=== PATIENT | female | born 1990 | race Caucasian/White ===

== ENCOUNTER 2019-08-29 01:21 | Emergency (ER) | payer BC, OTHER ==
[2019-08-29] MEDS ORDERED: Etomidate 2 MG/ML 20 ML SDV IVPUSH ONE (01:43)
--- NOTE | 2019-08-29 02:05 | EDM.PDOC ---
ED HPI GENERAL MEDICAL PROBLEM - General Chief Complaint: Lower Extremity Injury/Pain Stated Complaint: ankle Time Seen by Provider: 08/29/19 01:37 Source of Information: Reports: Patient History Limitations: Reports: No Limitations - History of Present Illness INITIAL COMMENTS - FREE TEXT/NARRATIVE: This is a 29-year-old female. She has been in the [employer] and when she went out of the parking lot to go home she slipped and twisted her ankle. She was not able to get up after she fell and she noted that the ankle is bent to the outside. She is brought here to the ER for evaluation. She complains of severe pain in the ankle itself is obviously fractured and dislocated. She denies any other injuries at this time. Left Ankle Pain Score (Numeric/FACES): 10 - Related Data Allergies Allergy/AdvReac Type Severity Reaction Status Date / Time No Known Allergies Allergy Verified 08/29/19 01:26 Home Meds: Home Meds Hydrocodone/Acetaminophen [Hydrocodon-Acetaminophen 5-325] 1 - 2 each PO Q6H PRN #20 tablet 08/29/19 [Rx] Past Medical History - Past Health History Medical/Surgical History: Denies Medical/Surgical History Social & Family History - Tobacco Use Smoking Status *Q: Never Smoker Second Hand Smoke Exposure: No - Caffeine Use Caffeine Use: Reports: Coffee - Alcohol Use Days Per Week of Alcohol Use: 1 Number of Drinks Per Day: 7 Total Drinks Per Week: 7 - Recreational Drug Use Recreational Drug Use: No Review of Systems - Review of Systems Review Of Systems: See Below (Patient is not able to give a review of systems at this time) Constitutional: Denies: Chills, Fever Eyes: Reports: No Symptoms Ears: Reports: No Symptoms Nose: Reports: No Symptoms Mouth/Throat: Reports: No Symptoms Respiratory: Reports: No Symptoms Cardiovascular: Reports: No Symptoms GI/Abdominal: Reports: No Symptoms Genitourinary: Reports: No Symptoms Musculoskeletal: Reports: Joint Pain, Other (Ankle pain) Skin: Reports: No Symptoms Neurological: Reports: No Symptoms Psychiatric: Reports: No Symptoms ED EXAM, GENERAL - Physical Exam Exam: See Below Exam Limited By: No Limitations General Appearance: Alert, WD/WN, Moderate Distress Eye Exam: Bilateral Eye: Normal Inspection Ears: Normal External Exam Nose: Normal Inspection Throat/Mouth: Normal Lips, Normal Voice, No Airway Compromise Head: Normocephalic Neck: Supple Respiratory/Chest: No Respiratory Distress Extremities: Other (Left lower extremity ankle the ankle is shifted to the medial side and is obviously dislocated, neurovascular is intact in the toes, he denies any knee pain or other injury however the left ankle is a consuming pain for her) Neurological: Alert, Oriented Psychiatric: Anxious, Tearful Skin Exam: Warm, Dry ED TRAUMA EXTREMITY PROCEDURES - Joint Reduction Site: Other (Left ankle) Sedation: Conscious Sedation Pre-Procedure NV Status: Normal Post-Procedure NV Status: Normal Number of Attempts: 1 Post-Reduction Imaging: Completely Reduced Joint Reduction Complications: No Progress/Comments: The patient was placed in trauma room 2, once respiratory was here the nurse gave her 20 mg of etomidate, she went to sleep peacefully, once she had full conscious sedation the left ankle was reduced and a posterior splint and sugar tong splint were placed. X-rays postreduction shows good placement talus but she has a trimalleolar fracture. Patient woke up without any difficulty after she was already splinted. The severe pain that she was having has resolved though she is still having some pain from the ankle. During this time her pulse ox stayed above 94, her pulse in the 100 range. And there were no complications with the procedure. - Splinting Left Lower Extremity Splint Site: Left ankle Pre-Procedure NV Status: Normal Post-Procedure NV Status: Normal Splint Material: Other (Ortho-Glass) Splint Design: Sugar Tong, Posterior Applied & Form Fitted By: Provider Provider Post-Splint Application NV Check: NV Status Normal, Good Position Complications: No Course - Vital Signs Last Recorded V/S: Last Vital Signs Temp 96.9 F 08/29/19 01:25 Pulse 96 08/29/19 01:25 Resp 18 08/29/19 01:25 BP 107/76 08/29/19 01:25 Pulse Ox 97 08/29/19 01:25 - Orders/Labs/Meds Orders: Active Orders 24 hr Category Date Time Status Ankle 2V Lt [CR] Routine Exams 08/29/19 02:03 Taken Ankle 2V Lt [CR] Stat Exams 08/29/19 01:35 Taken DME for Discharge [COMM] Stat Oth 08/29/19 02:38 Ordered Meds: Medications Discontinued Medications Generic Name Dose Route Start Last Admin Trade Name Freq PRN Reason Stop Dose Admin Etomidate 20 mg 08/29/19 01:43 08/29/19 01:50 Amidate IVPUSH 08/29/19 01:44 20 mg ONETIME ONE Administration Hydromorphone HCl 0.25 mg 08/29/19 02:19 08/29/19 02:23 Dilaudid IVPUSH 08/29/19 02:20 0.25 mg ONETIME ONE Administration - Radiology Interpretation Free Text/Narrative:: Initial x-ray shows a trimalleolar fracture essentially with the talus moved laterally and posteriorly showing not only fractures but a dislocation of the ankle. Post reduction the talus is in proper position and the bones of fallen back into place appropriately. - Re-Assessments/Exams Free Text/Narrative Re-Assessment/Exam: 08/29/19 02:[address] Mcallister regarding the fracture and the reduction. He is going to see her on Friday and do some additional studies and then take her to surgery on Friday. Spoke to the mother and the patient regarding the plan. I will put her on crutches and I told her absolutely no weightbearing on that left ankle. She is to go home put the left leg up and ice it down and take medicines for pain and then call Dr. Mcallister's office Friday morning at 8 AM. They understand completely that she cannot walk on that left foot and that she needs to stay off of it completely and keep it up and ice down until she sees Dr. Mcallister. Departure - Departure Time of Disposition: 02:43 Disposition: Home, Self-Care 01 Condition: Fair Clinical Impression: Dislocation of left ankle joint, initial encounter Closed trimalleolar fracture of left ankle Qualifiers: Encounter type: initial encounter Qualified Code(s): S82.852A - Displaced trimalleolar fracture of left lower leg, initial encounter for closed fracture Fx shaft fibula-closed Qualifiers: Encounter type: initial encounter Fracture morphology: oblique Fracture alignment: displaced Laterality: left Qualified Code(s): S82.432A - Displaced oblique fracture of shaft of left fibula, initial encounter for closed fracture - Discharge Information *PRESCRIPTION DRUG MONITORING PROGRAM REVIEWED*: No *COPY OF PRESCRIPTION DRUG MONITORING REPORT IN PATIENT SHWETA: No Prescriptions: Hydrocodone/Acetaminophen [Hydrocodon-Acetaminophen 5-325] 1 - 2 each PO Q6H PRN #20 tablet PRN Reason: Pain Instructions: Ankle Dislocation, [id number], Crutch Use, Adult, [id number] , Ankle Fracture Referrals: Jose Manuel Mcallister MD [Physician] - Forms: ED Department Discharge Additional Instructions: Use your crutches at all times, do not put any weight on that left foot or ankle , when you go home put the left leg up and iced down the ankle, keep that left leg up as much as possible Call Dr. Blandon's office at 8 AM on Friday to be seen by him for additional x-ray studies and then preop for surgery on Friday this week is what he told me Use the medications for pain as needed, drink lots of fluids so it does not upset your stomach, you may eat normally as you feel fit, return to the ER if needed Sepsis Event Note - Evaluation Sepsis Screening Result: No Definite Risk - Focused Exam Vital Signs: Vital Signs Temp Pulse Resp BP Pulse Ox 08/29/19 01:25 96.9 F 96 18 107/76 97 Date Exam was Performed: 08/29/19 Time Exam was Performed: 02:38 - My Orders Last 24 Hours: My Active Orders 08/29/19 01:35 Ankle 2V Lt [CR] Stat 08/29/19 02:03 Ankle 2V Lt [CR] Routine 08/29/19 02:38 DME for Discharge [COMM] Stat - Assessment/Plan Last 24 Hours: My Active Orders 08/29/19 01:35 Ankle 2V Lt [CR] Stat 08/29/19 02:03 Ankle 2V Lt [CR] Routine 08/29/19 02:38 DME for Discharge [COMM] Stat
[2019-08-29] MEDS ORDERED: HYDROmorphone 0.5 MG/0.5 ML Syringe IVPUSH ONE (02:19)
--- NOTE | 2019-08-29 09:21 | CR ---
Left ankle: 2 views left ankle were obtained. Comparison: No previous ankle study. Slightly comminuted distal fibular shaft fracture is noted. Fracture noted within the medial and posterior malleolus. There is dislocation of the distal tibia anteriorly and more prominent medially in relation to the talus. Diffuse soft tissue swelling is noted. No additional abnormality is seen. Impression: 1. Trimalleolar fracture with dislocation of the tibiotalar joint. 2. Soft tissue swelling. Diagnostic code #3 This report was dictated in [place] Standard Time
--- NOTE | 2019-08-29 09:25 | CR ---
Left ankle: 2 views of the left ankle were obtained. Comparison: Previous ankle exam performed earlier on the same day (1:35 AM). Medial malleolus fracture, distal fibular shaft fracture and posterior malleolus fracture are again noted and are improved in alignment from previous study. Previous dislocation at the tibiotalar joint has been corrected. Fiberglass cast is in place. Diffuse soft tissue swelling is present. Impression: 1. Reduction of previous dislocation. Fracture alignment is also significantly improved. 2. Fiberglas cast is now seen. Diagnostic code #3 This report was dictated in [place] Standard Time
== END 2019-08-29 03:18 | disposition home or self-care (01) ==
LOC: JD.ED 01:21
DX: S82.852A Displaced trimalleolar fracture of left lower leg, initial encounter for closed fracture (principal); S82.432A Displaced oblique fracture of shaft of left fibula, initial encounter for closed fracture; W01.0XXA Fall on same level from slipping, tripping and stumbling without subsequent striking against object, initial encounter
CPT/HCPCS: 27840; 73600; 96374; 99283; J1170; J3490; 27818; 99284

== ENCOUNTER 2019-09-06 06:03 | Day surgery (SDC) | payer BC ==
[~2019-09-06 06:03] MED LIST: Midazolam 1 MG/ML 2 ML SDV ONE; Propofol 200 MG/20 ML SDV ONE; Ropivacaine 0.5% 5 MG/ML 30 ML SDV ONE; fentaNYL 100 MCG/2 ML SDV ONE
--- NOTE | 2019-09-06 06:24 | PCM.PREANE ---
Preanesthetic Assessment - Anesthesia/Transfusion/Family Hx Anesthesia History: Prior Anesthesia Without Reaction Transfusion History: No Prior Transfusion(s) Intubation History: Unknown - Review of Systems General: No Symptoms Pulmonary: No Symptoms Cardiovascular: No Symptoms Gastrointestinal: No Symptoms Neurological: No Symptoms Other: Reports: None - Physical Assessment ASA Class: 2 Mental Status: Alert & Oriented x3 Airway Class: Mallampati = 3 Dentition: Reports: Normal Dentition Thyro-Mental Finger Breadths: 3 Mouth Opening Finger Breadths: 3 ROM/Head Extension: Full Lungs: Clear to Auscultation, Normal Respiratory Effort Cardiovascular: Regular Rate, Regular Rhythm - Allergies Allergies/Adverse Reactions: Allergies Allergy/AdvReac Type Severity Reaction Status Date / Time amoxicillin Allergy Cannot Verified 09/03/19 12:58 Remember cetirizine [From Zyrtec] Allergy Cannot Verified 09/03/19 12:58 Remember - Acknowledgements Anesthesia Type Planned: General Anesthesia, Regional Block, MAC Pt an Appropriate Candidate for the Planned Anesthesia: Yes Alternatives and Risks of Anesthesia Discussed w Pt/Guardian: Yes Pt/Guardian Understands and Agrees with Anesthesia Plan: Yes PreAnesthesia Questionnaire - Past Health History Medical/Surgical History: Denies Medical/Surgical History HEENT History: Reports: Allergic Rhinitis, Impaired Vision Respiratory History: Reports: Asthma EXPLORATION GEOLOGIST History: Reports: Other (See Below) Other OB/BYN History: AUBRIE III, HGSIL - Past Surgical History Head Surgeries/Procedures: Reports: None HEENT Surgical History: Reports: None Cardiovascular Surgical History: Reports: None Respiratory Surgical History: Reports: None GI Surgical History: Reports: None Female Surgical History: Reports: None Male Surgical History: Reports: None Endocrine Surgical History: Reports: None Neurological Surgical History: Reports: None Musculoskeletal Surgical History: Reports: Other (See Below) Other Musculoskeletal Surgeries/Procedures:: finger fracture with surgery Oncologic Surgical History: Reports: None Dermatological Surgical History: Reports: None - SUBSTANCE USE Smoking Status *Q: Never Smoker Recreational Drug Use History: No - HOME MEDS Home Medications: Home Meds Hydrocodone/Acetaminophen [Hydrocodon-Acetaminophen 5-325] 1 - 2 each PO Q6H PRN #20 tablet 08/29/19 [Rx] Albuterol Sulfate [Proair Hfa] 1 - 2 puff INH Q4H PRN 09/03/19 [History] Levonorgestrel-Ethin Estradiol [Orsythia-28 Tablet] 1 tab PO DAILY 09/03/19 [ History] - CURRENT (IN HOUSE) MEDS Current Meds: Current Medications Lactated Ringer's (Ringers, Lactated) 1,000 mls @ 125 mls/hr IV ASDIRECTED MARS Stop: 09/06/19 23:00 Lidocaine/Sodium Bicarbonate (Buffered Lidocaine 1% In Ns 8.4%) 0.25 ml IDERM ONETIME PRN PRN Reason: Prior to IV Start Stop: 09/06/19 23:00 Sodium Chloride (Saline Flush) 10 ml FLUSH ASDIRECTED PRN PRN Reason: Keep Vein Open Stop: 09/06/19 23:00 Discontinued Medications Fentanyl (Sublimaze) Confirm Administered Dose 100 mcg .ROUTE .STK-MED ONE Stop: 09/06/19 05:52 Midazolam HCl (Versed 1 Mg/Ml) Confirm Administered Dose 4 mg .ROUTE .STK-MED ONE Stop: 09/06/19 05:52 Propofol (Diprivan 20 Ml) Confirm Administered Dose 400 mg .ROUTE .STK-MED ONE Stop: 09/06/19 05:52 Ropivacaine (Naropin 0.5%) Confirm Administered Dose 30 ml .ROUTE .STK-MED ONE Stop: 09/06/19 05:58
[2019-09-06] MEDS ORDERED: Bupivacaine 0.25% 10 ML SDV ONE ×2 (06:32→08:09)
[2019-09-06] MEDS ORDERED: Sodium Chloride 0.9% 10 ML Syringe FLUSH PRN (07:00)
[2019-09-06] MEDS ORDERED: Lidocaine 1%/Sod Bicarbonate in NS 8.4% 1 ML Syringe IDERM PRN (07:00)
[2019-09-06] MEDS ORDERED: Midazolam 1 MG/ML 2 ML SDV ONE (07:16)
[2019-09-06] MEDS ORDERED: ceFAZolin 1 GM Vial ONE (07:20)
[2019-09-06] MEDS ORDERED: Propofol 200 MG/20 ML SDV ONE ×3 (07:22→08:24)
[2019-09-06] MEDS: Lactated Ringers 1,000 ML IV SCH ×2 (07:24→10:44)
[2019-09-06] MEDS ORDERED: Lactated Ringers 1,000 ML ONE (07:25)
--- NOTE | 2019-09-06 08:22 | PCM.PRNOTE ---
- Free Text/Narrative Note: Postoperative regional pain control requested by surgeon. Pre-op Dx: Left trimalleolar fracture Surgery : Left trimalleolar fracture ORIF Anesthesia Procedure: Left Popliteal block and Left saphenous block below the knee with U/S guidance Requesting physician: Dr. Jose Manuel Goode Risks and benefits discussed with the patient preoperatively including infection , bleeding, incomplete or failed block, possible nerve damage, local anesthetic toxicity. Chart reviewed, VS stable. Permit signed. Patient in PACU holding area, stable , alert and awake. Time out performed at 06 :38. Oxygen 3L via NC. Left lateral thigh area above the knee was prepped with Chloraprep x 1 and allowed to dry. Midazolam IV 4 mg given incrementally. Under aseptic technique, the Left common peroneal and Left tibial nerves were identified under ultrasound prior to needle insertion. 4" Stimuplex needle #22 G was inserted under US guidance. Neuromuscular response was elicited with noted foot twitch at 0.6 mA. Under direct visualization of needle tip the injection of 0.5% Ropivacaine with 1:200k epinephrine, total of 30 mls in divided doses, maintaining negative aspiration was completed without problems. After that, the medial surface of the left leg BELOW the knee was prepped with Chloraprep and allowed to dry. Under ultrasound guidance left great saphenous vein was identified and using a 2" Stimuplex needle 5 mls of Bupivacaine 0.5% were inject around it in a crescent shape fashion. No local anesthetic toxicity was noted. Patient is awake, stable and tolerated the procedure well. Please see the attached ultrasound images. Time: 06:38 - 07:00 Date: 09/06/2019 Reymundo Vallecillo CRNA
[2019-09-06] MEDS ORDERED: HYDROmorphone 0.5 MG/0.5 ML Syringe IVPUSH PRN (08:27)
[2019-09-06] MEDS ORDERED: fentaNYL 100 MCG/2 ML SDV IVPUSH PRN (08:27)
[2019-09-06] MEDS ORDERED: Ondansetron 4 MG/2 ML SDV ONE (08:42)
--- NOTE | 2019-09-06 09:16 | PCM.POSTAN ---
POST ANESTHESIA ASSESSMENT - MENTAL STATUS Mental Status: Alert, Somnolent - VITAL SIGNS Vital Signs: Last Vital Signs Temp 98.2 F 09/06/19 09:05 Pulse 106 H 09/06/19 09:05 Resp 23 H 09/06/19 09:05 BP 150/79 H 09/06/19 09:05 Pulse Ox 100 09/06/19 09:05 - RESPIRATORY Respiratory Status: Respiratory Rate WNL, Airway Patent, O2 Saturation Stable, Supplemental Oxygen - CARDIOVASCULAR CV Status: Pulse Rate WNL, Blood Pressure Stable - GASTROINTESTINAL GI Status: No Symptoms - PAIN Pain Score: 0 (post sciatic popliteal block) - POST OP HYDRATION Hydration Status: Adequate & Stable
--- NOTE | 2019-09-06 09:22 | CR ---
Left ankle: 13 fluoroscopic spot views were obtained of the left ankle utilizing C-arm device. Previously noted distal fibular shaft fracture and medial malleolar fracture are noted. Ankle mortise is symmetric. Study shows placement of plate and screws across the fibular shaft fracture and 2 screws within the medial malleolar fracture. Final exam shows symmetric ankle mortise. Fluoroscopy time is given as 56.8 seconds. Impression: 1. Operative study showing fixation of previous fractures. Diagnostic code #2 This report was dictated in [place] Standard Time
[2019-09-06] MEDS ORDERED: Acetaminophen/HYDROcodone 325-5 MG Tab PO PRN (09:52)
--- NOTE | 2019-09-06 10:43 | PCM48HPAN ---
Post Anesthesia Note - EVALUATION WITHIN 48HRS OF ANESTHETIC Vital Signs in Normal Range: Yes Patient Participated in Evaluation: Yes Respiratory Function Stable: Yes Airway Patent: Yes Cardiovascular Function Stable: Yes Hydration Status Stable: Yes Pain Control Satisfactory: Yes Nausea and Vomiting Control Satisfactory: Yes Mental Status Recovered: Yes Vital Signs: Last Vital Signs Temp 97.3 F 09/06/19 10:20 Pulse 87 09/06/19 10:35 Resp 13 09/06/19 10:35 BP 124/79 09/06/19 10:35 Pulse Ox 99 09/06/19 10:35
--- NOTE | 2019-09-06 18:06 | PCM.OPNOTE ---
- General Post-Op/Procedure Note Date of Surgery/Procedure: 09/06/19 Operative Procedure(s): oped reduction internal fixation of left trimalleolar ankle fracture with syndesmotic fixation Pre Op Diagnosis: left trimalleolar ankle fracture with syndesmosis disruption Post-Op Diagnosis: Same Anesthesia Technique: Local, MAC, Regional Block Primary Surgeon: Jose Manuel Mcallister Anesthesia Provider: Reymundo Vallecillo Bridal Sales Consultant: Nancy Jones EBL in mLs: 10 Complications: None Condition: Good Free Text/Narrative:: Intake & Output 09/06/19 09/06/19 09/06/19 06:59 14:59 22:59 Intake Total 940 Balance 940
--- NOTE | 2019-09-06 18:45 | OR ---
DATE OF OPERATION: 09/06/2019 SURGEON: Jose Manuel Mcallister MD OPERATION PERFORMED: Open reduction and internal fixation of left trimalleolar ankle fracture with syndesmotic fixation. PREOPERATIVE DIAGNOSIS: Left trimalleolar ankle fracture with syndesmotic disruption. POSTOPERATIVE DIAGNOSIS: Left trimalleolar ankle fracture with syndesmotic disruption. ANESTHESIA: Local MAC with regional popliteal block. ANESTHESIA PROVIDER: Reymundo Vallecillo. FOOD AND BEVERAGE SERVER: Nancy Jones PA-C ESTIMATED BLOOD LOSS: Less than 10 mL. COMPLICATIONS: None. CONDITION: Stable. DESCRIPTION OF PROCEDURE: The patient was identified in the preop holding area. Proper site was marked and identified by the surgeon. The patient was taken back to the operating room, where after adequate anesthesia, the patient's left lower extremity had a nonsterile tourniquet applied and then was sterilely prepped and draped in the usual sterile fashion. OR time-out was performed. The patient received 2 g of IV Ancef. At this time, the left lower extremity was exsanguinated. Tourniquet was insufflated to 250 mmHg. At this time, standard lateral incision was made more proximally as the patient had a higher fibular fracture. Care was taken to correct the neurovascular bundles. This was retracted anteriorly. This was taken down the fracture site. Fracture site was identified. Fracture hematoma was then irrigated. I then rongeured out, and a vhjsq-sy-hymit reduction clamp was used for reduction of the fibula. Fibula was noted to be reduced with adequate gnosticist of length distally on C-arm fluoroscopy. At this time, utilizing C-arm fluoroscopy, the plate was then placed, making sure that I had distally enough room to place a syndesmotic fixation. Proximally, one 3.5 cortical screw was placed, and then distally, one 3.5 cortical screw was placed and was found to have adequate gnosticist and fixation of the fracture with anatomic reduction. Next 2 more 3.5 cortical screws were placed proximally and then 2 more placed distally. At this time, attention was turned to the medial malleolar piece. The medial malleolar incision was then made. This was taken down at the medial malleolar piece. Curette and rongeur were used to remove any fracture hematoma. [id number] clamp was then used for reduction, and 2 guidewires were placed for 4.0 Cannulated screws in divergent fashion on both the anterior and posterior portion. This was found to have adequate positioning of the K-wires on both AP and lateral views. The over-drill was then used for the 4-0 cannulated screws, and two 4-0 cannulated screws 40 mm in length were then placed and was found to have adequate compression across the medial malleolar piece. At this time, another 3.5 cortical screw was placed in tricortical fashion after syndesmosis was reduced. The patient was noted to have anatomic alignment and symmetric ankle mortise, and there was no opening in the ankle mortise on stress testing. Adequate saline was then irrigated through the wound and final C-arm fluoroscopic films were taken. 2-0 Vicryl was used subcutaneously. [place] were used for closure of the skin. The patient was placed in a sterile soft dressing and a posterior slab splint. Sent to PACU in stable condition. ISAURO /[id number]
== END 2019-09-06 12:20 | disposition home or self-care (01) ==
LOC: JD.SDS 06:03
PROVIDERS: ATTEND Orthopaedic Surgery
DX: S82.852A Displaced trimalleolar fracture of left lower leg, initial encounter for closed fracture (principal); S93.432A Sprain of tibiofibular ligament of left ankle, initial encounter; J45.909 Unspecified asthma, uncomplicated; E66.3 Overweight; W00.0XXA Fall on same level due to ice and snow, initial encounter; Z68.34 Body mass index [BMI] 34.0-34.9, adult; Z88.0 Allergy status to penicillin; Z88.8 Allergy status to other drugs, medicaments and biological substances; Z79.51 Long term (current) use of inhaled steroids
CPT/HCPCS: 27822; 27829; 76000; 81025; A9270; J0690; J2250; J2405; J2704; J2795; J3010; J3490; J7120; 01480; 64450; C1713; C1769; C1776